=== PATIENT | female | born 2000 | race Caucasian/White ===

== ENCOUNTER 2023-11-15 10:25 | Emergency (ER) | payer MEDICAID, SELFPAY ==
[2023-11-15 10:31] VITALS: BP 113/83; PULSE 121; RESP 18; TEMP 38.5; O2SAT 99; BMI 38.6
[2023-11-15 10:36] VITALS: O2SAT 99
--- NOTE | 2023-11-15 10:38 | PC.NURSE ---
slight swelling and redness observed in throat.
--- NOTE | 2023-11-15 10:40 | PC.NURSE ---
pt has been evaluated at another ER and dx w/ URI, pt states she was swabbed for Flu, COVID and RSV and reports neg results
--- NOTE | 2023-11-15 10:55 | ED.URI1 ---
HPI - URI/Sore Throat General Chief Complaint: Fever Stated Complaint: DIZZINESS Time Seen by Provider: 11/15/23 10:55 Source: patient Limitations: no limitations History of Present Illness HPI Narrative: patient's here with continued sore throat and earache. Four days ago she was a different emergency room had an extensive workup with negative Kovic, negative influenza and negative respiratory syncytial virus. She states they did not swab her throat. She has not lost her voice. She's not had vomiting. She does have a fever here. She just not getting any better. Related Data Home Medications Medication Instructions Recorded Confirmed etonogestrel 0.12 mg-ethinyl 1 vag ring vaginal .MONTHLY 11/15/23 11/15/23 estradiol 0.015 mg/24 hr vaginal ring (Simi) Allergies Allergy/AdvReac Type Severity Reaction Status Date / Time No Known Drug Allergies Allergy Verified 11/15/23 10:31 [facility] Social History Smoking status: Current some day smoker Exam Narrative Exam Narrative: awake alert pleasant vital signs noted was temperature 101.3. Her voice is normal she's not posturing or drooling there is no stridor no laryngitis with her voice. HEENT shows both tympanic membranes be normal. Tonsillar areas of substantial erythema exudate and swelling. The uvula is not involved. The floor the mouth and palate are normal. There is cervical adenitis bilaterally. Her lungs were completely clear with no wheezes rales or rhonchi and heart sounds are normal. Constitutional Vital Signs, click to edit/add: Last Vital Signs Temp 101.3 F H 11/15/23 10:31 Pulse 121 H 11/15/23 10:31 Resp 18 11/15/23 10:31 BP 113/83 11/15/23 10:31 Pulse Ox 99 11/15/23 10:36 O2 Del Method Room Air 11/15/23 10:36 Course Vital Signs Vital signs: Vital Signs Temperature 101.3 F H 11/15/23 10:31 Pulse Rate 121 H 11/15/23 10:31 Respiratory Rate 18 11/15/23 10:31 Blood Pressure 113/83 11/15/23 10:31 Pulse Oximetry 99 11/15/23 10:31 Oxygen Delivery Method Room Air 11/15/23 10:31 Temperature 101.3 F H 12/29/23 10:31 Pulse Rate 121 H 11/15/23 10:31 Respiratory Rate 18 11/15/23 10:31 Blood Pressure 113/83 11/15/23 10:31 Pulse Oximetry 99 11/15/23 10:36 Oxygen Delivery Method Room Air 11/15/23 10:36 MDM - URI/Sore Throat MDM Narrative Medical decision making narrative: patient here with sore throat and clinically has tonsillitis. No evidence of abscess formation. We'll start her on an antibiotic Discharge Plan Discharge Chief Complaint: Fever Clinical Impression: Acute tonsillitis Patient Disposition: Home, Self-Care Time of Disposition Decision: 11:04 Prescriptions / Home Meds: No Action etonogestrel-ethinyl estradiol [EluRyng] 0.12-0.015 mg/24 hr ring 1 vag ring vaginal .MONTHLY Additional Instructions: fever reducers such as Tylenol taken with ibuprofen/lozenges/Augmentin Stand Alone Forms: Portal Instructions Referrals: Physician,Non-Staff, MD [Primary Care Provider] - 1 week
[2023-11-15] MEDS: ACETAMINOPHEN 500 MG TABLET 1000 MG PO (11:28)
== END 2023-11-15 11:34 | disposition home or self-care (01) ==
PROVIDERS: Emergency Provider Emergency Medicine Emergency Medical Services
DX: J03.90 Acute tonsillitis, unspecified (principal); F17.200 Nicotine dependence, unspecified, uncomplicated; R50.9 Fever, unspecified
CPT/HCPCS: 99283